=== PATIENT | female | born 1995 | race Caucasian/White ===

== ENCOUNTER 2019-09-22 19:44 | Inpatient (IN) ==
[2019-09-22] MEDS ORDERED: G.I. COCKTAIL PO ONE (20:02)
[2019-09-22] MEDS ORDERED: NS 1,000 ML IV ONE ×2 (20:45→23:03)
[2019-09-22 20:55] LABS: BASO# 0.02 X1000 (0.0-0.2); BASO% 0.3 % (0.0-0.8); EOS# 0.06 X1000 (0.0-0.7); EOS% 0.8 % (0.0-10.0); HEMATOCRIT 38.7 % (37.0-47.0); HEMOGLOBIN 12.1 g/dL (12.0-16.0); IMM GRAN# 0.01 X1000 (0.0-0.04); IMM GRAN% 0.1 % (0.0-0.5); LYMPH# 1.21 X1000 (1.2-3.4); LYMPH% 15.9 % (20.5-51.1); MCH 23.5 PG (27-31); MCHC 31.3 g/dL (33-37); MCV 75.1 FL (81-99); MONO# 0.31 X1000 (0.11-0.59); MONO% 4.1 % (1.7-9.3); NEUT# 6.01 X1000 (1.4-6.5); NEUT% 78.8 % (42.2-75.2); PLT 384 X1000 (130-400); RBC 5.15 XMIL (4.2-5.4); WBC 7.62 X1000 (4.8-10.8)
[2019-09-22] MEDS ORDERED: ZOFRAN IV ONE (21:07)
--- NOTE | 2019-09-22 21:25 | Diag Imaging Result Doc PS360 ---
EXAM: ABDOMEN FLAT/UPRIGHT HISTORY: abd pain TECHNIQUE: Two views COMPARISON: None. FINDINGS: No free air beneath the diaphragm. No bowel obstruction. No organomegaly. No foreign body. No abnormal calcifications. IMPRESSION: Negative exam. Electronically signed by Hieu Koehler 09/22/2019 9:22 PM
[2019-09-22 21:27] LABS: AGAP 12; ALBUMIN 4.3 g/dL (3.5-5.0); ALKALINE PHOSPHATASE 249 U/L (32-104); BILIRUBIN URINE NEGATIVE (NEGATIVE); BLOOD URINE NEGATIVE (NEGATIVE); BUN 9 mg/dL (8-22); CALCIUM 9.5 mg/dL (8.8-10.2); CHLORIDE 102 mmol/L (98-107); CLARITY VERY CLOUDY (CLEAR); COLOR YELLOW; COSMO 273; CREATININE 0.6 mg/dL (0.5-0.9); ESTIMATED GFR > 60; GLUCOSE 112 mg/dL (70-104); GLUCOSE URINE NEGATIVE (NEGATIVE); GOT 805 U/L (10-30); GPT 630 U/L (10-36); KETONE URINE TRACE mg/dL (NEGATIVE); LEUKOCYTES URINE 1+ (NEGATIVE); NITRITE URINE POSITIVE (NEGATIVE); PH URINE 6.5; POTASSIUM 4.2 mmol/L (3.5-5.1); PROTEIN URINE 1+(30 mg/dL) mg/dL (NEGATIVE); SODIUM 137 mmol/L (136-145); SP GRAVITY URINE 1.015; TCO2 23 mmol/L (25-35); TOTAL PROTEIN 7.9 g/dL (6.3-8.3); URINE BACTERIA 2+ /HFP; UROBILINOGEN URINE 4 mg/dL
[2019-09-22 21:28] LABS: URINE CAST NONE SEEN /LPF; URINE CRYSTAL CA OXALATE PRESENT /HPF; URINE EPITHELIAL CELLS >10 /HPF (<10); URINE SOURCE CLEAN CATCH; URINE YEAST NONE SEEN /HPF
--- NOTE | 2019-09-22 21:41 | Diag Imaging Result Doc PS360 ---
EXAM: CHEST-1 VIEW HISTORY: cp TECHNIQUE: Chest single view COMPARISON: None 2017 FINDINGS: The lungs are well expanded. The heart is not enlarged. The vessels are not distended. There are no infiltrates. No effusion identified. IMPRESSION: Negative exam. Electronically signed by Hieu Koehler 09/22/2019 9:39 PM
[2019-09-22] MEDS ORDERED: ROCEPHIN 1 GM in NS 50 ML IV ONE (21:44)
[2019-09-22 22:07] LABS: AMYLASE 153 U/L (20-200); LIPASE 679 U/L (13-60)
--- NOTE | 2019-09-22 22:10 | Diag Imaging Result Doc PS360 ---
EXAM: CT ABD/PELVIS W/IV CONT ONLY HISTORY: abdo pain TECHNIQUE: CT abdomen and pelvis with intravenous contrast COMPARISON: None. FINDINGS: No calcified gallstones or adjacent inflammation. There is fatty infiltration of the liver. Normal spleen, pancreas, adrenal glands, and kidneys. No hydronephrosis. Normal aorta. Normal appendix. No abscess. No bowel obstruction. There are small scattered mesenteric and para-aortic nodes. No ascites. The urinary bladder is moderately distended and appears normal. Normal uterus. There is a 1.8 cm right ovarian cyst. IMPRESSION: 1.Fatty infiltration of the liver 2.Small right ovarian cyst 3.Multiple small scattered lymph nodes which could represent mesenteric adenitis although they are smaller than is typically seen with adenitis. This exam was performed using automated exposure control, adjustment of mA or kV according to patient size, and/or use of iterative reconstruction technique. Electronically signed by Hieu Koehler 09/22/2019 10:08 PM
--- NOTE | 2019-09-22 22:58 | PROVIDER DOCUMENTATION ---
This chart was entered by Sravani Mckeon Scribe, acting as scribe for Cornell Taylor MD. HPI-Chest Pain - General Chief Complaint: Chest Pain Stated Complaint: CHEST PAINS Time Seen by Provider: 09/22/19 19:54 Source: patient Allergies/Adverse Reactions: Patient Allergies Allergy/AdvReac Type Severity Reaction Status Date / Time No Known Allergies Allergy Verified 09/22/19 19:52 Home Medications: Home Medication List Medication Instructions Recorded Confirmed Last Taken Type Ferrous Sulfate [Iron] 325 mg PO DAILY 05/26/18 08/11/18 08/10/18 07:00 History Labetalol [Trandate] 100 mg PO BID 07/27/18 08/11/18 08/10/18 21:00 History Ibuprofen 800 mg PO Q8H PRN PRN 08/11/18 08/11/18 Unknown History Potassium Chloride E.r. [Klor-Con] 40 meq PO DAILY #30 tab 08/13/18 Unknown Rx - History of Present Illness-CP Nature of Presenting Problem: pt is a 24 yr old female presenting with 3 day complaint of epigastric pain, nausea and vomiting, no relief with Mylanta or Prilosec. pt denies shortness of breath. Location: reports: epigastric Chest Pain Radiation: reports: no radiation Quality of Pain: reports: burning Severity in ED: moderate Onset/Duration: 3 days ago Timing: getting worse Context/Activities at Onset: reports: light activity Modifying Factors: improves with: antacids (mylanta, prilosec without relief) Associated Symptoms: reports: nausea, vomiting. denies: back pain, fever/chills, shortness of breath Nitro Today/Relief: no nitro taken today Aspirin Treatment Today: no aspirin today Prior Chest Pain/Cardiac Workup: reports: no prior chest pain Similar Symptoms Previously?: No Recently Seen Here or By Another Healthcare Provider: No Review of Systems - Adult - REVIEW OF SYSTEMS - ADULT Constitutional: denies: chills, fever Eyes: reports: no symptoms reported Ears, Nose, Mouth & Throat: reports: no symptoms reported Cardiovascular: reports: chest pain. denies: palpitations, syncope Respiratory: denies: cough, shortness of breath Gastrointestinal: reports: abdominal pain, nausea, vomiting. denies: diarrhea Genitourinary: reports: dysuria. denies: frequency, flank pain Musculoskeletal: reports: no symptoms reported Integumentary: reports: no symptoms reported Neurological: reports: no symptoms reported Psychiatric: reports: no symptoms reported Endocrine: reports: no symptoms reported Hematologic/Lymphatic: reports: no symptoms reported Allergic/Immunologic: reports: no symptoms reported All Other Systems: Reviewed and Negative Past History - Adult - PAST MEDICAL HISTORY-ADULT Review of Records: reports: Old Records Reviewed, Nursing Assessment Review, Medications Reviewed, Social history reviewed & non-contributory. Major Childhood Illnesses: reports: denies history Cardiovascular: reports: denies history Respiratory: reports: denies history Gastrointestinal: reports: denies history Obstetrical/Gynecological: reports: denies history Genitourinary: reports: denies history Musculoskeletal: reports: denies history Neurological: reports: headaches/migraines Endocrine/Immune: reports: denies history Other Conditions: reports: denies history - PRIOR SURGERIES/PROCEDURES Surgical/Procedure History: reports: none - IMMUNIZATION STATUS Childhood Immunizations: See Nurse Assessment Flu Vaccine: See Nurse Assessment - FAMILY HISTORY Family History: reviewed, not pertinent - SOCIAL HISTORY Smoking: denies Substance Use: denies Living Situation: family Physical Exam-General - PHYSICAL EXAM-ADULT Initial Vital Signs Reviewed: Yes - CONSTITUTIONAL General Appearance: alert, no apparent distress, obese, anxious - EYES Eyes: PERRL/EOMI - HEAD, EARS, NOSE, MOUTH & THROAT HENMT: normocephalic/atraumatic, moist mucous membranes, pharynx normal - NECK Neck: non-tender, full range of motion, supple, normal inspection - RESPIRATORY Respiratory: chest non-tender, lungs clear, normal breath sounds, no respiratory distress, no accessory muscle use - CARDIOVASCULAR Cardiovascular: normal peripheral pulses, regular rate, rhythm - GASTROINTESTINAL (ABDOMEN) Abdominal Exam: normal bowel sounds, soft, tenderness (epigastric tenderness) - LYMPHATIC Lymphatic: no adenopathy - MUSCULOSKELETAL Back Exam: normal inspection, no CVA tenderness, no vertebral tenderness Extremity: normal range of motion, non-tender, normal gait, normal inspection - SKIN Integumentary: normal color, normal turgor, warm/dry - NEUROLOGIC Neurologic: grossly normal, no motor/sensory deficits - PSYCHIATRIC Psych/Mental Status: anxious Progress - PLAN OF CARE/RESULTS Progress/Plan/Lab Results: Vital Signs - 8 hr 09/22/19 19:48 Temperature 98.0 F Pulse Rate 96 H Respiratory Rate 18 Blood Pressure 136/94 O2 Sat by Pulse Oximetry 99 Bedside Urine ED: Urine Bedside Start: 09/22/19 19:55 Freq: ORDERED Status: Active Protocol: Activity Type Activity Date Activity User E-Sign Co-Sign Detail Recorded Client Recorded Date Recorded By Document 09/22/19 19:55 [id number] 09/22/19 20:45 [id number] Document 09/22/19 23:01 [id number] 09/22/19 23:01 [id number] 09/22/19 09/22/19 19:55 23:01 Point of Care [Bedside Point of Care] -Lot # [id number] - Results Negative Negative -Control Line Visible? Yes Yes Laboratory Results - last 24 hr 09/22/19 09/22/19 09/22/19 20:10 20:10 20:10 WBC 7.62 RBC 5.15 Hgb 12.1 Hct 38.7 MCV 75.1 L MCH 23.5 L MCHC 31.3 L RDW Std Deviation 15.0 H Plt Count 384 MPV 10.0 Immature Gran % (Auto) 0.1 Neut % (Auto) 78.8 H Lymph % (Auto) 15.9 L [place] % (Auto) 4.1 Eos % (Auto) 0.8 Baso % (Auto) 0.3 Immature Gran # (Auto) 0.01 Neut # (Auto) 6.01 Lymph # (Auto) 1.21 [place] # (Auto) 0.31 Eos # (Auto) 0.06 Baso # (Auto) 0.02 Sodium 137 Potassium 4.2 Chloride 102 Carbon Dioxide 23 L Anion Gap 12 BUN 9 Creatinine 0.6 Estimated GFR/1.73 m2 > 60 BUN/Creatinine Ratio 15 Glucose 112 H Calculated Osmolality 273 Calcium 9.5 Total Bilirubin 1.50 H AST 805 H ALT 630 H Alkaline Phosphatase 249 H Troponin T < 0.010 Lje-E-Mwknzilzoka Pept Total Protein 7.9 Albumin 4.3 Globulin 4.0 Albumin/Globulin Ratio 1.0 Amylase Lipase Urine Source Urine Color Urine Clarity Urine pH Ur Specific [place] Urine Protein Urine Ketones Urine Blood Urine Nitrite Urine Bilirubin Urine Urobilinogen Urine WBC Urine Microscopic WBC Ur Epithelial Cells Urine Crystals Urine Bacteria Urine Casts Urine Yeast Urine Glucose Group A Strep Rapid 09/22/19 09/22/19 09/22/19 20:10 20:10 20:25 WBC RBC Hgb Hct MCV MCH MCHC RDW Std Deviation Plt Count MPV Immature Gran % (Auto) Neut % (Auto) Lymph % (Auto) [place] % (Auto) Eos % (Auto) Baso % (Auto) Immature Gran # (Auto) Neut # (Auto) Lymph # (Auto) [place] # (Auto) Eos # (Auto) Baso # (Auto) Sodium Potassium Chloride Carbon Dioxide Anion Gap BUN Creatinine Estimated GFR/1.73 m2 BUN/Creatinine Ratio Glucose Calculated Osmolality Calcium Total Bilirubin AST ALT Alkaline Phosphatase Troponin T Ylj-H-Rwhbvjuyios Pept Total Protein Albumin Globulin Albumin/Globulin Ratio Amylase 153 Lipase 679 H Urine Source CLEAN CATCH Urine Color YELLOW Urine Clarity VERY CLOUDY A Urine pH 6.5 Ur Specific [place] 1.015 Urine Protein 1+(30 mg/dL) A Urine Ketones TRACE Urine Blood NEGATIVE Urine Nitrite POSITIVE A Urine Bilirubin NEGATIVE Urine Urobilinogen 4 Urine WBC 1+ A Urine Microscopic WBC 10-20 A Ur Epithelial Cells >10 A Urine Crystals CA OXALATE PRESENT Urine Bacteria 2+ Urine Casts NONE SEEN Urine Yeast NONE SEEN Urine Glucose NEGATIVE Group A Strep Rapid NEGATIVE 09/22/19 20:53 WBC RBC Hgb Hct MCV MCH MCHC RDW Std Deviation Plt Count MPV Immature Gran % (Auto) Neut % (Auto) Lymph % (Auto) [place] % (Auto) Eos % (Auto) Baso % (Auto) Immature Gran # (Auto) Neut # (Auto) Lymph # (Auto) [place] # (Auto) Eos # (Auto) Baso # (Auto) Sodium Potassium Chloride Carbon Dioxide Anion Gap BUN Creatinine Estimated GFR/1.73 m2 BUN/Creatinine Ratio Glucose Calculated Osmolality Calcium Total Bilirubin AST ALT Alkaline Phosphatase Troponin T [id number]-U-Egcwqthtopz Pept 32 Total Protein Albumin Globulin Albumin/Globulin Ratio Amylase Lipase Urine Source Urine Color Urine Clarity Urine pH Ur Specific [place] Urine Protein Urine Ketones Urine Blood Urine Nitrite Urine Bilirubin Urine Urobilinogen Urine WBC Urine Microscopic WBC Ur Epithelial Cells Urine Crystals Urine Bacteria Urine Casts Urine Yeast Urine Glucose Group A Strep Rapid Orders Category Date Time Status Admit - [facility] Routine AdmDCTranf 09/22/19 22:59 Active Activity - Bed Rest with BRP ORDERED Care 09/22/19 23:00 Active Call Admitting on Arrival AT ADMISSION Care 09/22/19 23:01 Active ED: Urine Bedside ORDERED Care 09/22/19 19:55 Active Nursing- Obtain EKG ONCE Care 09/22/19 19:55 Active Saline Loc DIRECTED Care 09/22/19 23:00 Active Vital Signs Order ROUTINE Care 09/22/19 23:00 Active Z-Document. for Tele Applied ORDERED Care 09/22/19 23:01 Active NPO Diet 09/22/19 23:01 Active ABDOMEN FLAT/UPRIGHT [RAD] Stat Exams 09/22/19 21:[address] ABD/PELVIS W/IV CONT ONLY [CT] Stat Exams 09/22/19 21:29 Completed cxr [CHEST-1 VIEW] [RAD] Stat Exams 09/22/19 20:59 Completed AMYLASE [CHEM] Stat Lab 09/22/19 20:10 Completed CBC WITH ELECTRONIC DIFF [HEME] Stat Lab 09/22/19 20:10 Completed COMPREHENSIVE METABOLIC PANEL [CHEM] Stat Lab 09/22/19 20:[address] Stat Lab 09/22/19 20:25 Completed LIPASE [CHEM] Stat Lab 09/22/19 20:10 Completed PRO B-NATRIURETIC PEPTIDE Stat Lab 09/22/19 20:53 Completed TROPONIN T Stat Lab 09/22/19 20:[address] W/POSS RFLX CULT [URINALYSIS] Stat Lab 09/22/19 20:10 Completed URINE CULTURE [RM] Routine Lab 09/22/19 21:28 Received 0.9% Sodium Chloride Inj [Ns] 1,000 ml Med 09/22/19 20:45 Discontinued IV 999 mls/hr CefTRIAXONE [Rocephin] 1 gm Med 09/22/19 21:44 Discontinued 0.9% Sodium Chloride Inj [Ns] 50 ml IV NOW Lido/Mccoy Alk/Al&mg Hydrox [G.i. Cocktail] Med 09/22/19 20:02 Discontinued 30 ml PO NOW ONE Ondansetron [Zofran] Med 09/22/19 21:07 Discontinued 4 mg IV NOW ONE Ondansetron [Zofran] Med 09/22/19 23:00 Ordered 4 mg IV Q6H PRN PRN Telemetry [OM.EQ] Routine Oth 09/22/19 23:00 Active EKG [EKG] Stat Ther 09/22/19 19:55 Ordered Result Diagrams: 09/22/19 20:10 09/22/19 20:10 - EKG 1 Time of EKG reading by physician:: 20:33 EKG Read and Signed by:: Cornell Taylor EKG Interpretation (*Must complete 3 of following elements*): Normal Rate: 99 Rhythm: nsr [place]: normal QRS: LVH (minimal voltage criteria, may be normal variant) CT Interval: normal ST Wave: normal - XRAY 1 XRAY Study: Abdomen Impression: Normal ( EXAM: ABDOMEN FLAT/UPRIGHT HISTORY: abd pain TECHNIQUE: Two views COMPARISON: None. FINDINGS: No free air beneath the diaphragm. No bowel obstruction. No organomegaly. No foreign body. No abnormal calcifications. IMPRESSION: Negative exam. Electronically signed by Hieu Koehler 09/22/2019 9:22 PM) 2 XRAY Study: Chest Impression: Normal ( EXAM: CHEST-1 VIEW HISTORY: cp TECHNIQUE: Chest sing le view COMPARISON: None 2017 FINDINGS: The lungs are well expanded. The heart is not enlarged. The vessels are not distended. There are no infiltrates. No effusion identified. IMPRESSION: Negative exam. Electronically signed by Hieu Koehler 09/22/2019 9:39 PM [id number]/192138 Interpreting Physician: Hieu Koehler MD Dictated Date/Time: 09/22/192138 cc: Cornell Taylor MD; None,PCP) - CT/MRI 1 CT Study: Abdomen, Pelvis Impression: Abnormal (Signed EXAM: CT ABD/PELVIS W/IV CONT ONLY HISTORY: abdo pain TECHNIQUE: CT abdomen and pelvis with intravenous contrast COMPARISON: None. FINDINGS: No calcified gallstones or adjacent inflammation. There is fatty infiltration of the liver. Normal spleen, pancreas, adrenal glands, and kidneys. No hydronephrosis. Normal aorta. Normal appendix. No abscess. No bowel obstruction. There are small scattered mesenteric and para-aortic nodes. No ascites. The urinary bladder is moderately distended and appears normal. Normal uterus. There is a 1.8 cm right ovarian cyst. IMPRESSION: 1.Fatty infiltration of the liver 2.Small right ovarian cyst 3.Multiple small scattered lymph nodes which could represent mesenteric adenitis although they are smaller than is typically seen with adenitis. This exam was performed using automated exposure control, adjustment of mA or kV according to patient size, and/or use of iterative reconstruction technique. Electronically signed by Hieu Koehler 09/22/2019 10:08 PM) - CONSULTS/PCP/HOSPITALIST Notification #1 *Consult/PCP/Hospitalist*: Dr Jolly Time Discussed: 22:57 Consult Disposition: Admit Departure - Departure Date of Disposition Decision: 09/22/19 Time of Disposition Decision: 22:57 DIAGNOSIS: UTI (urinary tract infection), Pancreatitis, Elevated LFTs, Fatty liver Disposition: ADMITTED INPATIENT 09 Certified Medical Emergency: Emergent Condition: Fair Referrals and Follow-Ups: None,PCP [Primary Care Provider] - - Critical Care Note This patient required my direct & personal management of CC.: No Attestation - Physician/ KIMBERLY Attestation Patient care was provided by Advanced Practice Provider:: No The physician spent face to face time with patient:: Yes Advanced Practice Provider documentation review:: Supervising physician onsite and consulted in the evaluation and care of this patient. The physician did have a face to face encounter with the patient. This chart was documented by the indicated scribe, (Sravani Mckeon Scribe) and accurately reflects the services I performed and decisions made by me, Cornell Taylor MD, as attested by the provider's signature.
[2019-09-22] MEDS ORDERED: ZOFRAN IV PRN (23:00)
[2019-09-22] MEDS ORDERED: DEMEROL IV ONE (23:03)
--- NOTE | 2019-09-22 23:48 | EKG Report ---
Test Performed on : 09/22/2019 8:33:10 PM Test Reason : cp Blood Pressure : / mmHG Vent. Rate : 099 BPM Atrial Rate : 099 BPM P-R Int : 160 ms QRS Dur : 082 ms QT Int : 316 ms P-R-T Axes : 044 017 025 degrees QTc Int : 405 ms Normal sinus rhythm. Minimal voltage criteria for LVH, may be normal variant Borderline ECG No previous ECGs available Unconfirmed Result
--- NOTE | 2019-09-23 09:10 | Diag Imaging Result Doc PS360 ---
EXAM: US ABDOMEN-COMPLETE 09/23/2019 HISTORY: abdo pain, possible gallstone TECHNIQUE: Abdominal ultrasound COMMENT: The visualized portions of the body of the pancreas are unremarkable the head and tail are not well seen. The visualized portions of the aorta and inferior vena cava are within normal limits. The liver is unremarkable. There are multiple small stones layering dependently in the gallbladder. There is no evidence of wall thickening or para cholecystic fluid. There is a positive sonographic Arce sign. The common bile duct is nondistended measuring 3 mm in diameter. The kidneys are without evidence of hydronephrosis or mass. The spleen is not enlarged. There are no abnormal fluid collections. IMPRESSION: Cholelithiasis. The possibility of cholecystitis cannot be excluded. Electronically signed by Carlo Clark 09/23/2019 9:07 AM
[2019-09-23] MEDS ORDERED: ROCEPHIN 1 GM in NS 50 ML IV SCH ×2 (09:30→16:00)
[2019-09-23 09:48] LABS: BASO# 0.01 X1000 (0.0-0.2); BASO% 0.2 % (0.0-0.8); EOS% 1.9 % (0.0-10.0); HEMATOCRIT 36.4 % (37.0-47.0); HEMOGLOBIN 11.1 g/dL (12.0-16.0); LYMPH# 1.59 X1000 (1.2-3.4); LYMPH% 29.6 % (20.5-51.1); MCH 23.3 PG (27-31); MCHC 30.5 g/dL (33-37); MCV 76.3 FL (81-99); MONO# 0.31 X1000 (0.11-0.59); MONO% 5.8 % (1.7-9.3); MPV 9.6 FL (7.4-10.4); NEUT# 3.37 X1000 (1.4-6.5); NEUT% 62.5 % (42.2-75.2); PLT 339 X1000 (130-400); RBC 4.77 XMIL (4.2-5.4); RDW 15.1 % (11.5-14.5); WBC 5.38 X1000 (4.8-10.8)
[2019-09-23 09:59] LABS: AGAP 9; ALBUMIN 3.6 g/dL (3.5-5.0); ALKALINE PHOSPHATASE 230 U/L (32-104); BUN 8 mg/dL (8-22); CALCIUM 8.9 mg/dL (8.8-10.2); CHLORIDE 106 mmol/L (98-107); COSMO 273; CREATININE 0.6 mg/dL (0.5-0.9); ESTIMATED GFR > 60; GLUCOSE 88 mg/dL (70-104); GOT 558 U/L (10-30); GPT 586 U/L (10-36); POTASSIUM 3.9 mmol/L (3.5-5.1); SODIUM 138 mmol/L (136-145); TCO2 22 mmol/L (25-35); TOTAL PROTEIN 7.3 g/dL (6.3-8.3)
[2019-09-23] MEDS ORDERED: NS 1,000 ML IV SCH (11:15)
[2019-09-23 11:43] LABS: AMYLASE 74 U/L (20-200); LIPASE 86 U/L (13-60)
--- NOTE | 2019-09-23 12:20 | HISTORY AND PHYSICAL ---
PRIMARY CARE PROVIDER: No one. CHIEF COMPLAINT: Nausea, vomiting, epigastric pain. HISTORY OF PRESENT ILLNESS: Ms. Shanon Chun is a 24-year-old female with a medical history of hypertension, migraines, and GERD, who states for 3 days, she has been having emesis with epigastric to right flank pain. Apparently, she has been having little twinges of these pains for about 2 months now, and waking up with nausea in the mornings for at least a few months, and also for a few months, she states she has had urinary tract infection symptoms, such as burning with urination, bladder pressure, foul-smelling urine, urinary frequency and urgency, and urinalysis here shows that there is a urinary tract infection. So far, the culture showed gram- negative rods. She has been started on IV fluids and IV antibiotics. The GI workup for the pain, the abdominopelvic CT shows some scattered lymph nodes with mesenteric adenitis, but shows a normal pancreas. It also does not show any gallstones, but the abdominal ultrasound is performed and it does show cholelithiasis and possibility of cholecystitis. What it does not show is it does not show any part of the pancreas. Liver enzymes are elevated. Pancreatic enzymes are elevated. Currently, she is now pain-free. She denies having ever any fever. The nausea and vomiting has also improved as well. Will send her to [facility] for consultation with General Surgery. PAST MEDICAL HISTORY: 1. Hypertension. 2. Migraines. 3. GERD. PAST SURGICAL HISTORY: None. SOCIAL HISTORY: Denies tobacco, alcohol, or illicit drug use. FAMILY HISTORY: Mother's side of the family with diabetes and heart disease. Father's side of family with diabetes, lung cancer, and colon cancer. ALLERGIES: No known drug allergies. HOME MEDICATIONS: None. REVIEW OF SYSTEMS: A 14-point review of systems is complete and all are negative, except for those mentioned above in the HPI. PHYSICAL EXAMINATION: VITAL SIGNS: Temperature 98 degrees, heart rate 83, respiratory rate 16, blood pressure 128/77, O2 saturation 98% on room air. GENERAL: Ms. Shanon Chun is a 24-year-old female. She is in no acute distress. She is able to answer questions appropriately. HEENT: Atraumatic, normocephalic. Pupils equal, round, reactive to light. Extraocular movements intact. Mucous membranes are moist. NECK: Trachea midline. CARDIOVASCULAR: S1, S2. Regular rate and rhythm. No rubs, gallops, murmurs. No lower extremity edema. There are +2 dorsalis and radial pulses. Negative JVD or carotid bruits. PULMONARY: Clear to auscultate. Bilateral breath sounds. No accessory muscle use or work of breathing noted. GASTROINTESTINAL: Soft. Tender in the right upper and lower quadrant abdomen that radiates to the right flank area. Positive bowel sounds x4. EXTREMITIES: Moves all extremities equally. Full range of motion. NEUROLOGIC: A and O x3. Follows commands. Sensory is intact. SKIN: Warm, dry, intact. LABORATORY DATA: White blood cells 5000, hemoglobin 11, hematocrit 36, platelet count 339,000. Sodium 138, potassium 3.9, BUN 8, creatinine 0.8, glucose 88, calcium is 8.9, bilirubin 0.80. The admission liver function showed bilirubin 1.50, AST 805, ALT 630, alkaline phosphatase 249. Today, bilirubin is 0.80, AST 558, ALT 586, alkaline phosphatase is 230. Last night, amylase 153, lipase 679. Urinalysis: Cloudy, 1+ protein, positive nitrites, 1+ white blood cells, 10 to 20 microscopic white blood cells, 2+ bacteria. Strep negative. MICROBIOLOGY: Urine culture has gram-negative rods. Throat culture pending. IMAGING: Chest x-ray: Negative exam. Abdominal x-ray: Negative exam. Abdominopelvic CT: Normal spleen, pancreas, adrenal glands, and kidneys. Liver is fatty liver. There are small scattered mesenteric and para-aortic nodes, and then the abdominal ultrasound showed cholelithiasis with possibility of cholecystitis. ASSESSMENT AND PLAN: 1. Cholelithiasis and possible cholecystitis. Currently on Rocephin. She has now elevation of liver enzymes and pancreatic enzymes. She has been started on intravenous fluids, antiemetics, pain medication, and a consult for General Surgery. 2. Gastroesophageal reflux disease, stable. 3. Hypertension, stable. 4. Deep venous thrombosis prophylaxis. Sequential compression devices. 5. Questionable pancreatitis, but the enzymes could just be elevated secondary to the gallbladder, but will do a lipid panel. She does not drink alcohol, and again she is getting fluids. Will put her on a clear liquid diet. 6. Transaminitis. Again, likely secondary to the cholelithiasis. Will monitor her liver enzymes daily. Dictated by FRAN Granados for Geovany Caputo MD Addendum: Patient seen and examined by myself. Agree with FRAN note. It reflects my assessment and plan. Patient is being admitted to hospital for cholelithiasis and possible cholecystitis. Will transfer this patient to [facility] and will consult GI and General Surgery. Will start her on antibiotics and monitor patient closely. cc: FRAN Granados MD [facility]
[2019-09-23] MEDS: NS 1,000 ML IV SCH (15:53)
[2019-09-23] MEDS ORDERED: MORPHINE IV PRN (16:45)
[2019-09-23] MEDS ORDERED: TYLENOL PO PRN (16:52)
[2019-09-23] MEDS: ZOFRAN IV PRN (17:04)
--- NOTE | 2019-09-23 18:42 | GENERAL SURGERY CONSULTATION ---
DATE: 09/23/2019 REQUESTING PHYSICIAN: Dr. Jolly. SURGEON CONSULTED: Dr. Dony Mcgrath. REASON FOR CONSULTATION: Cholelithiasis, transaminitis and elevated pancreatic enzymes. HISTORY OF PRESENT ILLNESS: This is a 24-year-old female who was in her usual state of health until the last 3 days when she began having nausea, vomiting, epigastric pain which also radiated to her right upper abdomen and flank. The pain has been constant in nature for the last 3 days but she has a history of episodes of right-sided abdominal pain that comes and goes. It seems to be worse after eating in the past. No other exacerbating or relieving factors. She denies fever, diarrhea or constipation. PAST MEDICAL HISTORY: Hypertension, migraines, gastroesophageal reflux disease. PAST SURGICAL HISTORY: None. HOME MEDICATIONS: None. ALLERGIES: No known drug allergies. FAMILY HISTORY: None pertinent. SOCIAL HISTORY: Negative for tobacco, alcohol or illicit drug use. REVIEW OF SYSTEMS: Ten systems reviewed and negative except as noted above. PHYSICAL EXAMINATION: Vital Signs: Temperature 98.9 degrees, pulse 77, respirations 20, blood pressure 109/52, O2 saturation 97%. General: Well-developed, well-nourished female in no distress who looks her stated age. HEENT: Normocephalic, atraumatic. Extraocular muscles intact. Pupils equal, round, reactive to light. Sclerae anicteric. Moist mucous membranes. Hearing grossly normal. No oral lesions. Neck: Supple. No thyromegaly. CV: Regular rate and rhythm. Respiratory: Bilateral breath sounds. No work of breathing. Gastrointestinal: Soft, nondistended. No organomegaly or mass. She is mildly tender in the epigastrium right upper quadrant. No rebound or guarding. Extremities: No clubbing, cyanosis, or edema. Skin: Warm and dry. No rash. Musculoskeletal: Moves all extremities equally and well. LABORATORY: White blood cell count 5.4, hemoglobin 11, hematocrit 36, platelet count 339,000. Basic metabolic profile reviewed and unremarkable. AST 558, ALT 586, alkaline phosphatase 230, total bilirubin 0.8, which is down from 1.5 on admission, amylase 74, lipase 86, which is down from 679 on admission. IMAGING: Abdominal pelvis CT scan shows fatty infiltration of the liver, small right ovarian cyst and some small scattered lymph nodes. Abdominal ultrasound shows gallstones layering in the dependent portion of the gallbladder. There is a positive sonographic Arce sign. The common bile duct is nondistended at 3 mm. ASSESSMENT AND PLAN: A 24-year-old female with biliary dyskinesia as well as cholelithiasis and probable cholecystitis. We are planning laparoscopic cholecystectomy with operative cholangiogram in the next day or 2 as her pancreatitis improves and the operating room schedule allows. I went over the risks and benefits with her including bleeding, infection, injury to surrounding organs such as the intestines or bile duct, incisional hernia and other imponderables. She understands and agrees to proceed. cc: Dony Mcgrath MD
[2019-09-23] MEDS: ZOSYN 3.375 GM in NS 50 ML IV SCH (21:27)
[2019-09-24] MEDS: NS 1,000 ML IV SCH ×2 (00:38→08:33)
[2019-09-24] MEDS: ZOSYN 3.375 GM in NS 50 ML IV SCH ×2 (02:04→08:25)
[2019-09-24] MEDS: ZOFRAN IV PRN (06:50)
[2019-09-24 07:04] LABS: BASO# 0.02 X1000 (0.0-0.2); BASO% 0.3 % (0.0-0.8); EOS# 0.19 X1000 (0.0-0.7); EOS% 2.7 % (0.0-10.0); HEMATOCRIT 35.7 % (37.0-47.0); IMM GRAN# 0.02 X1000 (0.0-0.04); IMM GRAN% 0.3 % (0.0-0.5); LYMPH# 2.09 X1000 (1.2-3.4); MCH 23.8 PG (27-31); MCHC 30.8 g/dL (33-37); MCV 77.1 FL (81-99); MONO# 0.41 X1000 (0.11-0.59); MONO% 5.9 % (1.7-9.3); MPV 9.9 FL (7.4-10.4); NEUT# 4.24 X1000 (1.4-6.5); NEUT% 60.8 % (42.2-75.2); PLT 324 X1000 (130-400); RBC 4.63 XMIL (4.2-5.4); RDW 15.2 % (11.5-14.5); WBC 6.97 X1000 (4.8-10.8)
[2019-09-24 07:20] LABS: AGAP 12; ALB/GLOB RATIO 0.9; ALBUMIN 3.5 g/dL (3.5-5.0); ALKALINE PHOSPHATASE 198 U/L (32-104); BUN 6 mg/dL (8-22); CHLORIDE 105 mmol/L (98-107); COSMO 274; CREATININE 0.7 mg/dL (0.5-0.9); ESTIMATED GFR > 60; GLUCOSE 84 mg/dL (70-104); GOT 215 U/L (10-30); GPT 419 U/L (10-36); POTASSIUM 3.8 mmol/L (3.5-5.1); SODIUM 139 mmol/L (136-145); TCO2 22 mmol/L (25-35); TOTAL PROTEIN 7.3 g/dL (6.3-8.3)
--- NOTE | 2019-09-24 09:41 | GENERAL SURGERY PROGRESS NOTE ---
DATE: 09/24/2019 SUBJECTIVE: The patient is feeling better with less pain. OBJECTIVE: She is afebrile. Vital signs are stable.General: She is awake, alert, oriented x3. No acute distress. GI: Soft, nontender, nondistended. LABORATORY: CBC normal. BMP unremarkable. A total bilirubin 0.5, AST 215, ALT 419, alkaline phosphatase 198. ASSESSMENT/PLAN: 24-year-old female with biliary pancreatitis. The pancreatitis has significantly improved. Her liver function tests are improving. We are planning laparoscopic cholecystectomy with cholangiogram today. We went over the risks, benefits, alternatives yesterday. She understands. She has no new questions. She agrees to proceed. cc: Dony Mcgrath MD
[2019-09-24] MEDS ORDERED: SENSORCAINE-MPF 0.5%/EPI 1:200,000 ONE (09:49)
[2019-09-24] MEDS ORDERED: SODIUM CHLORIDE 0.9% ONE (09:49)
[2019-09-24] MEDS ORDERED: LR 1,000 ML ONE (09:49)
[2019-09-24] MEDS ORDERED: ROBINUL ONE ×2 (09:59→10:00)
[2019-09-24] MEDS ORDERED: XYLOCAINE-MPF 2% ONE (09:59)
[2019-09-24] MEDS ORDERED: ZOFRAN ONE (09:59)
[2019-09-24] MEDS ORDERED: DECADRON ONE (09:59)
[2019-09-24] MEDS ORDERED: FENTANYL ONE (10:00)
[2019-09-24] MEDS ORDERED: QUELICIN (DOSE) ONE (10:00)
[2019-09-24] MEDS ORDERED: DIPRIVAN 1% ONE (10:00)
[2019-09-24] MEDS ORDERED: ZEMURON ONE (10:00)
[2019-09-24] MEDS ORDERED: VERSED ONE (10:57)
[2019-09-24] MEDS ORDERED: OFIRMEV 1000 MG/ISOTONIC SOLN 1,000 MG/100 ML BOTTLE ONE (11:37)
--- NOTE | 2019-09-24 12:04 | Diag Imaging Result Doc PS360 ---
OPERATIVE CHOLANGIOGRAM - 09/24/2019 INDICATION: CHOLECYSTITIS TECHNIQUE: The exam was performed by the patient's surgeon. Total fluoroscopy time was 12.7 seconds. One image was obtained. COMPARISON: None FINDINGS: Contrast was infused into the cystic duct. This outlines a normal common bile duct. There is good passage of contrast into the duodenum. No stricture or filling defect. IMPRESSION: No complication. Electronically signed by Grant Reynolds 09/24/2019 12:01 PM
[2019-09-24] MEDS: DILAUDID ONE ×2 (12:39→12:45)
[2019-09-24] MEDS ORDERED: NORCO-10 PO PRN (13:08)
[2019-09-24 13:20] VITALS: BP 139/75
[2019-09-24] MEDS ORDERED: G.I. COCKTAIL PO ONE (14:17)
--- NOTE | 2019-09-24 14:34 | OPERATIVE NOTE ---
PROCEDURE DATE: 09/24/2019 PREOPERATIVE DIAGNOSES: 1. Biliary pancreatitis. 2. Chronic calculous cholecystitis. POSTOPERATIVE DIAGNOSES: 1. Biliary pancreatitis. 2. Chronic calculous cholecystitis. PROCEDURE: Laparoscopic cholecystectomy with operative cholangiogram. SURGEON: Dony Mcgrath M.D. BULK SUGAR HANDLER: Curt Madden M.D. ANESTHESIA: General. ESTIMATED BLOOD LOSS: 20 mL. COMPLICATIONS: None apparent. SPECIMENS: Gallbladder. FINDINGS: The gallbladder appeared to be chronically inflamed. The cholangiogram revealed normal proximal hepatic radicles as well as distal common bile duct. There was flow of contrast flowing through the bile duct, into the duodenum, without filling defects or stenoses. TECHNIQUE: The patient was brought to the operating room and placed supine on the table. General anesthesia was induced. She was prepped and draped in the usual sterile fashion. Then, 0.25% Marcaine with epinephrine was used to anesthetize our incisions. An 11 mm incision was made just above the umbilicus. The fascia was exposed and incised sharply. Entry into the peritoneal cavity was obtained with the Optiview device. Pneumoperitoneum was established. The camera was inserted. There was no evidence of injury to underlying structures. She was placed in reverse Trendelenburg and left rotation. Three 5 mm incision ports were placed under direct vision in the epigastrium and right upper quadrant. The dome of the gallbladder was grasped by the fundraising assistant with an Allis clamp, and lifted up superiorly. Dr. Madden was present and helpful for entry into the abdominal cavity, retraction of the gallbladder, identifying the critical view, and assisting with closure. Fatty adhesions were taken down off the liver and dome of the gallbladder with a hook cautery and blunt dissection with the Maryland forceps. The triangle of Calot was then dissected out with the Maryland forceps and hook cautery until the critical view was obtained. The gallbladder/liver junction was seen. There were only two structures entering the gallbladder, the cystic duct and cystic artery. The duct was clipped on the distal side. A ductotomy was made proximal to this with scissors. A 14-gauge Angiocath was passed through the right upper quadrant. The Taut cholangiogram catheter was passed through this, into the cystic duct, and held in place with a clip. The cholangiogram was performed with findings as noted above. The clip, catheter, and Angiocath were removed. Two clips were placed on the proximal cystic duct. It was divided distal to these with scissors. The cystic artery was clipped proximally and distally, and incised in between with scissors. The gallbladder was removed from the liver bed using hook cautery, obtaining hemostasis along the way. It was placed in an EndoCatch bag. I examined the dissection area. There were no signs of any bleeding or bile leakage. The gallbladder and bag was brought out through the umbilical port site. The umbilical fascia was closed with 2 interrupted 0 Vicryl using the Ezio-Lisa device under direct vision. The abdomen was desufflated. The ports were removed. The skin was closed with 4-0 subcuticular Biosyn and Steri-Strips. There were no apparent complications. She was awakened in stable condition, and transferred to the recovery room. cc: Dony Mcgrath MD
== END 2019-09-24 15:28 | disposition home or self-care (01) | DRG 417 ==
LOC: P.ED 19:44 → P.MEDSURG 09-23 00:10 → SUATTDRO 09-23 00:10 → 4N 09-23 14:59
PROVIDERS: ATTEND Internal Medicine